=== PATIENT | female | born 1990 ===

== ENCOUNTER 2018-01-15 08:40 | Emergency (ER) | payer BC ==
[2018-01-15 08:46] VITALS: BP 116/75; PULSE 62; RESP 20; TEMP 98; O2SAT 98
--- NOTE | 2018-01-15 10:25 | C.PDOC ---
History Of Present Illness 27 y/o female presents to the ED complaining of pain to the left 4th toe for 2 days. No injury. States she did wear new shoes which may have contributed to pain. No fevers, chills, or redness to foot. Not taking any pain medications. Time Seen by Provider: 01/15/18 09:12 Chief Complaint (Nursing): Lower Extremity Problem/Injury History Per: Patient History/Exam Limitations: no limitations Onset/Duration Of Symptoms: Days (x2) Current Symptoms Are (Timing): Still Present Past Medical History Reviewed: Historical Data, Nursing Documentation, Vital Signs Vital Signs: Last Vital Signs Temp 98 F 01/15/18 08:42 Pulse 62 01/15/18 08:42 Resp 20 01/15/18 08:42 BP 116/75 01/15/18 08:42 Pulse Ox 98 01/15/18 11:20 - Medical History PMH: No Chronic Diseases Surgical History: No Surg Hx Family History: States: No Known Family Hx - Social History Hx Alcohol Use: No Hx Substance Use: Yes - Immunization History Hx Tetanus Toxoid Vaccination: No Hx Influenza Vaccination: No Hx Pneumococcal Vaccination: No Review Of Systems Except As Marked, All Systems Reviewed And Found Negative. Musculoskeletal: Positive for: Other (Toe Pain) Physical Exam - Physical Exam Appears: Non-toxic, No Acute Distress Skin: Normal Color, Warm, Dry Extremity: Tenderness (to the left 4th metatarsal), No Deformity, No Swelling ( or cellulitic process), Other (Neurovascularly intact) Pulses: Left Dorsalis Pedis: Normal, Right Dorsalis Pedis: Normal Neurological/Psych: Oriented x3, Normal Speech, Normal Motor, Normal Sensation, No Other (focal deficits) ED Course And Treatment O2 Sat by Pulse Oximetry: 98 (RA) Pulse Ox Interpretation: Normal - Other Rad x-ray left 4th toe X-Ray: Viewed By Me, Read By Radiologist Interpretation: FINDINGS: RIGHT RING FINGER: Left 4th toe is normal in appearance, without fracture or focal lesion. Remainder of the left foot (as seen on the AP view) grossly unremarkable. JOINTS: Normal. SOFT TISSUES: Normal. OTHER FINDINGS: None. IMPRESSION: No acute fracture or dislocation. Medical Decision Making Medical Decision Making: Impression: Foot pain Time: 9:22 Initial Plan: --Motrin 600 mg PO --X-Ray Left Foot X-ray viewed by me, preliminary read is negative. ALFRED wrap applied, and pain controlled in the ED. Advised patient to follow up w/ PMD and podiatry in 1-2 days. Disposition Counseled Patient/Family Regarding: Studies Performed, Diagnosis, Need For Followup, Rx Given - Disposition Referrals: Mary Angulo DPM [Staff Provider] - Disposition: HOME/ ROUTINE Disposition Time: 10:23 Condition: STABLE Additional Instructions: follow up with podiatry in 2 days call to make an appointment return to ER if symptoms worsens or progress take medications as prescribed rest, ice and elevate Prescriptions: Naproxen [Naprosyn] 500 mg PO BID PRN #16 tab PRN Reason: Pain, Moderate (4-7) Instructions: Metatarsalgia (DC), Foot Sprain (DC) Forms: General Discharge Instructions, [facility] (Portuguese), Work Excuse - POA Present On Arrival: None - Clinical Impression Clinical Impression: Joint pain, Foot pain - Scribe Statement The provider has reviewed the documentation as recorded by the Scribe (Ivonne Nguyen) Provider Attestation: All medical record entries made by the Scribe were at my direction and personally dictated by me. I have reviewed the chart and agree that the record accurately reflects my personal performance of the history, physical exam, medical decision making, and the department course for this patient. I have also personally directed, reviewed, and agree with the discharge instructions and disposition.
--- NOTE | 2018-01-15 11:05 | RAD ---
PROCEDURE: Left 4th toe finger radiographs. HISTORY: left 4thtoe pain COMPARISON: None. TECHNIQUE: AP radiograph of the left foot, as well as spot oblique and lateral images of left 4th toe were obtained. FINDINGS: RIGHT RING FINGER: Left 4th toe is normal in appearance, without fracture or focal lesion. Remainder of the left foot (as seen on the AP view) grossly unremarkable. JOINTS: Normal. SOFT TISSUES: Normal. OTHER FINDINGS: None. IMPRESSION: No acute fracture or dislocation.
== END 2018-01-15 10:34 | disposition home or self-care (01) ==
LOC: C.ER 08:40
DX: M79.672 Pain in left foot (principal); M25.572 Pain in left ankle and joints of left foot

== ENCOUNTER 2018-03-19 06:51 | Emergency (ER) | payer OTHER, BC ==
[2018-03-19 07:06] VITALS: BP 124/68; PULSE 87; RESP 16; TEMP 98.7; O2SAT 99
[2018-03-19 08:16] LABS: HCG,QUALITATIVE URINE NEGATIVE (NEGATIVE)
[2018-03-19 08:23] LABS: SQUAMOUS EPITHIAL 30 /hpf (0-5); URINE BACTERIA RARE (<OCC); URINE BILIRUBIN NEGATIVE (NEGATIVE); URINE BLOOD NEGATIVE (NEGATIVE); URINE CLARITY Hazy (Clear); URINE COLOR Yellow (YELLOW); URINE GLUCOSE (UA) NORMAL (Normal); URINE LEUKOCYTE ESTERASE NEG Leu/uL (Negative); URINE PROTEIN 1+ mg/dL (NEGATIVE)
--- NOTE | 2018-03-19 08:45 | C.PDOC ---
History Of Present Illness 27 y/o female presents to the ER complaining of epigastric pain, nausea, few episode of non-bilious vomiting x 2 and watery diarrhea x 1 which began yesterday. Pt states that the symptoms began after she drank Jamba juice. Pt denies fever, chills, recent illness, sore throat, throat tightness or swelling , CP, SOB, cough, wheezing, back pain, UTI symptoms. Ambulate to Ed for evaluation, not in any apparent distress. Time Seen by Provider: 03/19/18 07:15 Chief Complaint (Nursing): Abdominal Pain History Per: Patient History/Exam Limitations: no limitations Onset/Duration Of Symptoms: Days Current Symptoms Are (Timing): Still Present Severity: Moderate Past Medical History Reviewed: Historical Data, Nursing Documentation, Vital Signs Vital Signs: Last Vital Signs Temp 98.7 F 03/19/18 07:04 Pulse 87 03/19/18 07:04 Resp 16 03/19/18 07:04 BP 124/68 03/19/18 07:04 Pulse Ox 99 03/19/18 10:00 - Medical History PMH: No Chronic Diseases Surgical History: No Surg Hx Family History: States: No Known Family Hx - Social History Hx Alcohol Use: No Hx Substance Use: Yes - Immunization History Hx Tetanus Toxoid Vaccination: No Hx Influenza Vaccination: No Hx Pneumococcal Vaccination: No Review Of Systems Except As Marked, All Systems Reviewed And Found Negative. Constitutional: Negative for: Fever, Chills Gastrointestinal: Positive for: Nausea, Vomiting, Abdominal Pain, Diarrhea Genitourinary: Negative for: Dysuria, Hematuria Musculoskeletal: Negative for: Back Pain Physical Exam - Physical Exam Appears: Well, Non-toxic, No Acute Distress Skin: Normal Color, Warm, Dry, No Rash Head: Normacephalic Eye(s): bilateral: PERRL Ear(s): Bilateral: Normal Nose: No Flaring, No Discharge Oral Mucosa: Moist, No Drooling Throat: No Erythema, No Drooling Neck: Trachea Midline, Supple Cardiovascular: Rhythm Regular, No Murmur Respiratory: No Decreased Breath Sounds, No Accessory Muscle Use, No Stridor, No Wheezing Gastrointestinal/Abdominal: Soft, Tenderness (mild epigastric tenderness), No Distention, No Guarding, No Rebound Back: No CVA Tenderness Extremity: Normal ROM, No Deformity, No Swelling Neurological/Psych: Oriented x3, Normal Speech ED Course And Treatment O2 Sat by Pulse Oximetry: 99 Pulse Ox Interpretation: Normal Progress Note: On re-eval, pt is afebrile, hemodynamicaly stable. NOn-toxic. Tolerate po well in ED. PulsEOx 99% RA. ENT: no acute findings. neck: SUpple , (-) meningeal sign. Lungs: CTA B/L, BS equal B/L. ABd: benign, (-) guarding , (-) rebound, (-) localized tenderness. Neurologicaly intact. UA (-) acute findings. Pt has clinical findings c/w epigastric pain,N/V, resolved. Pt advised. ref. to f/u with PMD in 2-3 days for re-evaluation. return brandy ED if any worsening or new changes. Disposition Counseled Patient/Family Regarding: Studies Performed, Diagnosis, Need For Followup, Rx Given - Disposition Referrals: [facility] [Outside] Disposition: HOME/ ROUTINE Disposition Time: 08:10 Condition: STABLE Additional Instructions: Encourage fluids Diet restriction for 1-2 days Take medication as prescribed Follow up with PMD in 2-3 days for re-evaluation. return if any new changes. Prescriptions: Famotidine [Pepcid] 20 mg PO BID #20 tab Ondansetron ODT [Zofran ODT] 1 odt PO BID PRN #6 odt PRN Reason: Nausea/Vomiting Instructions: Nausea and Vomiting, Adult (DC) Forms: [facility] (Amharic), Work Excuse - Clinical Impression Clinical Impression: Nausea, Vomiting - PA / MEDICAL OFFICE RECEPTIONIST ASSISTANT / Resident Statement MD/DO has reviewed & agrees with the documentation as recorded. - Scribe Statement The provider has reviewed the documentation as recorded by the Shamika De Oliveira Provider Attestation All medical record entries made by the Shamika were at my direction and personally dictated by me. I have reviewed the chart and agree that the record accurately reflects my personal performance of the history, physical exam, medical decision making, and the department course for this patient. I have also personally directed, reviewed, and agree with the discharge instructions and disposition.
== END 2018-03-19 09:04 | disposition home or self-care (01) ==
LOC: C.ER 06:51
DX: R11.2 Nausea with vomiting, unspecified (principal)